=== PATIENT | female | born 1935 | race Caucasian/White ===

== ENCOUNTER 2017-07-03 17:28 | Emergency (ER) | payer MEDICARE, OTHER ==
[2017-07-03 18:29] VITALS: BP 160/67; PULSE 80; O2SAT 96
[2017-07-03] MEDS ORDERED: TYLENOL 325 MG PO ONE (18:35)
[2017-07-03] MEDS ORDERED: TYLENOL 325 MG ONE (18:37)
[2017-07-03] MEDS ORDERED: BACIGUENT PACKET TP ONE (20:04)
--- NOTE | 2017-07-03 20:04 | ERPHSYRPT ---
- History of Present Illness Time Seen by Provider: 07/03/17 18:31 Source: patient, family () Patient Subjective Stated Complaint: pT states "I was walking up an incline when I lost my balance and fell over backwards and hit my head on some asphalt and it was bleeding." Triage Nursing Assessment: PT alert and oriented X 3 skin pwd. pt ambulates without difficulty, able to speak in full sentences. pt has 2 cochlear implants and a small laceration to occiput. Physician History: CC: fell Hx: [facility]. She hit the back of her head. No LOC. No neck or back pain. No N/T/W. She has hx of cochlear implant. Last tetanus vaccine 1 year ago. No other injuries. No blood thinners. Occurred: just prior to arrival Allergies/Adverse Reactions: Penicillins Allergy (Verified 07/03/17 18:29) face numb acetaminophen [From Darvocet-N] Adverse Reaction (Verified 07/03/17 18:30) upset stomach propoxyphene [From Darvocet-N] Adverse Reaction (Verified 07/03/17 18:30) upset stomach Home Medications: Unobtainable [Unobtainable] 07/03/17 [History] Hx Tetanus, Diphtheria Vaccination/Date Given: Yes Hx Influenza Vaccination/Date Given: Yes Hx Pneumococcal Vaccination/Date Given: Yes Immunizations Up to Date: Yes - Review of Systems Constitutional: No Symptoms Eyes: No Vision Changes Respiratory: No Cough, No Dyspnea, No Other Cardiac: No Syncope Abdominal/Gastrointestinal: No Abdominal Pain, No Nausea, No Vomiting Musculoskeletal: Fall, No Back Pain, No Neck Pain, No Joint Pain Neurological: Headache, No Focal Weakness, No Parasthesia All Other Systems: Reviewed and Negative - Past Medical History Pertinent Past Medical History: Yes Neurological History: No Pertinent History ENT History: Cataracts, Glaucoma, Other Cardiac History: No Pertinent History Respiratory History: COPD Endocrine Medical History: Hypothyroidism Musculoskeletal History: Arthritis GI Medical History: GERD History: No Pertinent History Psycho-Social History: Anxiety, Depression Female Reproductive Disorders: No Pertinent History Other Medical History: polio - Past Surgical History Past Surgical History: Yes Neuro Surgical History: Other Cardiac: No Pertinent History Respiratory: No Pertinent History Gastrointestinal: No Pertinent History Genitourinary: No Pertinent History Musculoskeletal: Other Female Surgical History: Hysterectomy Other Surgical History: bilat cochlear implants. left ankle - Social History Smoking Status: Former smoker Exposure to second hand smoke: No Drug Use: none Patient Lives Alone: No () - Nursing Vital Signs Nursing Vital Signs: Initial Vital Signs Temperature 98.2 F 07/03/17 18:19 Pulse Rate 80 07/03/17 18:19 Respiratory Rate 18 07/03/17 18:19 Blood Pressure 160/67 07/03/17 18:19 O2 Sat by Pulse Oximetry 96 07/03/17 18:19 Pain Scale Pain Intensity 5 - [place] Coma Score Best Eye Response ([place]): (4) open spontaneously Best Verbal Response (Remy): (5) oriented Best Motor Response ([place]): (6) obeys commands [place] Total: 15 - Physical Exam General Appearance: alert Head Injury: ecchymosis, swelling (posterior scalp with hematoma), tenderness, No lacerations Eye Exam: PERRL/EOMI ENT Exam: airway nml Neck Exam: supple, No mid-line tenderness Respiratory/Chest Exam: normal breath sounds, No chest tenderness Cardiovascular Exam: normal heart sounds, regular rate/rhythm Gastrointestinal Exam: soft, No tenderness, No distention Back Exam: normal inspection, No vertebral tenderness Extremity Exam: normal inspection, normal range of motion, pelvis stable, No tenderness Neurologic Exam: alert, oriented x 3, cooperative, sensation nml, No motor deficits Skin Exam: warm, dry, No laceration SpO2: 96 Oxygen Delivery: Room Air Comment: there is abrasion on posterior scalp without laceration in need or repair. Will cleanse, dress. - Course Nursing assessment & vital signs reviewed: Yes Ordered Tests: Active Orders 24 hr Category Date Time Status Prepare for Sutures STAT Care 07/03/17 18:35 Active Sutures STAT Care 07/03/17 18:36 Active Wound Care STAT Care 07/03/17 18:35 Active HEAD WITHOUT CONTRAST [CT] Stat Exams 07/03/17 18:35 Taken Medication Summary Discontinued Medications Generic Name Dose Route Start Last Admin Trade Name Freq PRN Reason Stop Dose Admin Acetaminophen 650 mg 07/03/17 18:35 07/03/17 18:38 Tylenol 325 Mg PO 07/03/17 18:36 650 mg STAT ONE Administration Acetaminophen Confirm 07/03/17 18:37 Tylenol 325 Mg Administered 07/03/17 18:38 Dose 650 mg .ROUTE .STK-MED ONE - Progress Progress Note: 07/03/17 20:02 CT brain: eleazar 7:15 PM 07/03/2017: No comps. Significant B/L artifact from cochlear implants limits study. R posterior scalp hematoma. No underlying fx or gross acute intracranial bleed. Counseled pt/family regarding: diagnosis, need for follow-up, rad results - Departure Time of Disposition: 20:03 Departure Disposition: Home Clinical Impression: Fall (on)(from) incline, initial encounter Scalp hematoma Qualifiers: Encounter type: initial encounter Qualified Code(s): S00.03XA - Contusion of scalp, initial encounter Condition: Stable Critical Care Time: No Referrals: DMITRIY FRYE [ACTIVE STAFF] - Instructions: Prevent Falls Additional Instructions: HEAD INJURY 1. A responsible person should observe the patient at home for 24 hours. 2. If any of the following signs or symptoms are observed or occur, call your family physician or return to the emergency department: A. Behavior change B. Persistent vomiting C. Unequal pupils D. Increasing drowsiness E. Difficulty in arousing the patient F. Severe headache G. Lump on head increasing in size Stay with family. Return for problems or concerns. Tylenol as directed for discomfort.
--- NOTE | 2017-07-04 08:51 | XRAY ---
Indication: Posterior head injury following fall. Multiple contiguous axial images obtained through the head without contrast. Comparison: None There are bilateral cochlear implants producing extreme beam artifact limiting the study. Small right posterior scalp hematoma near the vertex. No underlying fracture, gross acute intracranial hemorrhage, mass effect, or hydrocephalus. Visualized paranasal sinuses are clear. Impression: Limited exam. Right posterior scalp hematoma. No underlying fracture or gross intracranial abnormalities. CT DI 61.28
== END 2017-07-03 20:15 | disposition home or self-care (01) ==
LOC: ED 17:28
DX: S00.03XA Contusion of scalp, initial encounter (principal); W18.30XA Fall on same level, unspecified, initial encounter; J44.9 Chronic obstructive pulmonary disease, unspecified; E03.9 Hypothyroidism, unspecified; S00.01XA Abrasion of scalp, initial encounter
CPT/HCPCS: 70450; 99281; 99284; A9270-GY

== ENCOUNTER 2017-08-07 13:40 | Emergency (ER) | payer MEDICARE, OTHER ==
--- NOTE | 2017-08-07 14:28 | ERPHSYRPT ---
- History of Present Illness Time Seen by Provider: 08/07/17 14:22 Source: patient, family Exam Limitations: no limitations Patient Subjective Stated Complaint: PT LOST BALANCE AND FELL AGAINIST THE OVEN DOOR,AND SHATTERD THE GLASS,PT HAS LACERATION TO BACK OF HEAD AND ABRASION TO LEFT ARM, NO LOC Triage Nursing Assessment: PT ALERT, WALKED IN, RESP EASY, SKIN W/D, HAS LACERATION 1CM TO BACK OF HEAD NO ACTIVE BLEEDING Physician History: The patient is an 81-year-old female who complains of falling backwards and hitting the back of her head on an oven door, causing a laceration to the back of her head. She denies loss of consciousness. Her past medical history is significant for hypothyroidism and depression. Occurred: just prior to arrival Reason for Fall: lost balance, fell from standing pos Injuries/Pain Location: head Loss of Consciousness: no loss of consciousness Quality: aching Severity of Pain-Max: mild Severity of Pain-Current: mild Modifying Factors: Improves With: nothing Associated Symptoms (Fall): other (scalp laceration) Allergies/Adverse Reactions: Penicillins Allergy (Verified 08/07/17 13:46) face numb acetaminophen [From Darvocet-N] Adverse Reaction (Verified 08/07/17 13:46) upset stomach propoxyphene [From Darvocet-N] Adverse Reaction (Verified 08/07/17 13:46) upset stomach Home Medications: Estrogens,Conjugated [Premarin Vaginal Cream] 1 gm DAILY 08/07/17 [History] Fluoxetine HCl 60 mg DAILY 08/07/17 [History] Levothyroxine Sodium [Synthroid] 25 mcg DAILY 08/07/17 [History] Modafinil 200 mg DAILY 08/07/17 [History] Hx Tetanus, Diphtheria Vaccination/Date Given: Yes Hx Influenza Vaccination/Date Given: Yes Hx Pneumococcal Vaccination/Date Given: Yes Immunizations Up to Date: Yes - Review of Systems Constitutional: No Fever, No Chills Eyes: No Symptoms Ears, Nose, & Throat: No Symptoms Respiratory: No Cough, No Dyspnea Cardiac: No Chest Pain, No Edema, No Syncope Abdominal/Gastrointestinal: No Abdominal Pain, No Nausea, No Vomiting, No Diarrhea Genitourinary Symptoms: No Dysuria Musculoskeletal: Fall, Injury Skin: Other (lac), No Rash Neurological: No Dizziness, No Focal Weakness, No Sensory Changes Psychological: No Symptoms Endocrine: No Symptoms Hematologic/Lymphatic: No Symptoms Immunological/Allergic: No Symptoms All Other Systems: Reviewed and Negative - Past Medical History Pertinent Past Medical History: Yes Neurological History: No Pertinent History ENT History: Cataracts, Glaucoma, Other Cardiac History: No Pertinent History Respiratory History: COPD Endocrine Medical History: Hypothyroidism Musculoskeletal History: Arthritis GI Medical History: GERD History: No Pertinent History Psycho-Social History: Anxiety, Depression Female Reproductive Disorders: No Pertinent History Other Medical History: polio, HEARING LOSS - Past Surgical History Past Surgical History: Yes Neuro Surgical History: Other Cardiac: No Pertinent History Respiratory: No Pertinent History Gastrointestinal: No Pertinent History Genitourinary: No Pertinent History Musculoskeletal: Other Female Surgical History: Hysterectomy Other Surgical History: bilat cochlear implants. left ankle - Social History Smoking Status: Former smoker Exposure to second hand smoke: No Drug Use: none Patient Lives Alone: No - Female History Hx Last Menstrual Period: POST - Nursing Vital Signs Nursing Vital Signs: Initial Vital Signs Temperature 97.2 F 08/07/17 13:48 Pulse Rate 93 H 08/07/17 13:48 Respiratory Rate 16 08/07/17 13:48 Blood Pressure 142/77 08/07/17 13:48 O2 Sat by Pulse Oximetry 95 08/07/17 13:48 Pain Scale Pain Intensity 2 - [place] Coma Score Best Eye Response ([place]): (4) open spontaneously Best Verbal Response (Remy): (5) oriented Best Motor Response (Remy): (6) obeys commands Remy Total: 15 - Physical Exam General Appearance: no apparent distress, alert Head Injury: lacerations (1 cm laceration to occiput) Eye Exam: PERRL/EOMI ENT Exam: airway nml Neck Exam: normal inspection, No tenderness Respiratory/Chest Exam: normal breath sounds, No chest tenderness, No respiratory distress Cardiovascular Exam: normal heart sounds, regular rate/rhythm Gastrointestinal Exam: soft, No tenderness, No distention, No guarding, No ecchymosis Rectal Exam: not done Back Exam: normal inspection, No vertebral tenderness Extremity Exam: normal inspection, normal range of motion, pelvis stable, No deformities Neurologic Exam: alert, oriented x 3, cooperative, sensation nml, No motor deficits Skin Exam: laceration (1 cm laceration to occiput) SpO2: 95 Oxygen Delivery: Room Air Procedures - Laceration/Wound Repair Occipital Wound Location: head Wound Length (cm): 1 Wound's Depth, Shape: superficial, linear Wound Explored: clean Irrigated: Yes Hibiclens Prep: Yes Wound Repaired With: Germain Number of Sutures: 2 Layer Closure?: No Sterile Dressing Applied?: No Splint Applied?: No Sling Applied?: No - CT Exams Cervical Spine CT Interpretation: Negative, Tele-radiologist Report, No Fracture (Per Dr Poe) Head CT Interpretation: Negative (Stable nonacute Head CT per Dr Poe), Tele- radiologist Report Ordered Tests: Active Orders 24 hr Category Date Time Status CERVICAL SPINE WO CONTRAST [CT] Stat Exams 08/07/17 14:27 Completed HEAD WITHOUT CONTRAST [CT] Stat Exams 08/07/17 14:27 Completed - Progress Progress: improved Counseled pt/family regarding: diagnosis, need for follow-up, rad results - Departure Time of Disposition: 16:15 Departure Disposition: Home Clinical Impression: Scalp contusion, Occipital scalp laceration Condition: Stable Critical Care Time: No Referrals: DHIRAJ BALLESTEROS DO [Primary Care Provider] - Additional Instructions: You had a scalp contusion and laceration. The laceration was repaired with 2 germain. Follow-up in 9-10 days with your local doctor for staple removal. Take Tylenol as needed for pain.
--- NOTE | 2017-08-07 15:24 | XRAY ---
Indication: Head injury following fall. Multiple contiguous axial images obtained through the head without contrast. Comparison: July 03, 2017. Study again limited due to bilateral cochlear implants producing extreme beam artifact. Again no gross acute intracranial hemorrhage, mass effect, or hydrocephalus. Fourth ventricle is midline without hydrocephalus. Bony calvarium intact. Visualized paranasal sinuses are clear. Impression: Stable grossly nonacute limited CT head without contrast exam. CT DI 51.17
--- NOTE | 2017-08-07 15:25 | XRAY ---
Indication: Pain following fall. Multiple contiguous axial images obtained through the cervical spine. Sagittal and coronal reformatted images obtained. Comparison: None There is age-appropriate osteopenia. Axial images negative for acute fracture, suspicious bony lesions, or spinal canal stenosis. Mild degenerative endplate spurring seen at the C4-C6 levels. Also multilevel bilateral degenerative facet arthropathy and odontoid process subcortical cysts. Sagittal and coronal reformatted images demonstrates cervical lordotic straightening with 4 mm anterolisthesis of C3 on C4, 2 mm retrolisthesis of C5 on C6, and 2 mm anterolisthesis of C7 on T1. Same levels demonstrates disc space narrowing/loss. C4-C5 segments appear fused. No acute compression fracture or jumped facets. Normal-appearing craniocervical junction. Visualized noncontrasted soft tissues demonstrates moderate carotid calcifications bilaterally, biapical pulmonary fibrosis/scarring, and partially visualized left sided cochlear implant. Impression: 1. Negative for acute fracture or spinal canal stenosis. 2. Multilevel moderate/advanced degenerative changes. 3. Grade 1 C3 and C7 anterolisthesis. Grade 1 C5 retrolisthesis. 4. Cervical lordotic reversal. CT DI 79.70
[2017-08-07 16:39] VITALS: BP 145/65; PULSE 78; O2SAT 96
== END 2017-08-07 16:40 | disposition home or self-care (01) ==
LOC: ED 13:40
PROC: 0HQ0XZZ Repair Scalp Skin, External Approach (ICD-10-PCS; principal; 2017-08-07)
DX: S00.03XA Contusion of scalp, initial encounter (principal); S01.01XA Laceration without foreign body of scalp, initial encounter; W01.198A Fall on same level from slipping, tripping and stumbling with subsequent striking against other object, initial encounter
CPT/HCPCS: 12001; 70450; 72125; 99282; 99284

== ENCOUNTER 2021-06-04 20:02 | Emergency (ER) | payer MEDICARE, OTHER ==
[2021-06-04 22:18] LABS: Absolute Neutrophil Ct (ANC) 5.01 (1.4-6.9); BASOPHIL % 0.6 % (0.0-0.4); Basophil (Absolute #) 0.05 (0-0.4); Eosinophil % 3.9 % (0.00-5.0); Eosinophil (Absolute #) 0.34 (0-0.5); Hematocrit 32.7 % (35-47); Hemoglobin 10.4 gm/dl (12.0-16.0); Lymphocyte (Absolute #) 2.62 (1.0-4.6); Lymphocytes % 30.3 % (24.0-44.0); Mean Cell Volume 99.7 fl (78-100); Mean Corpuscular Hemoglobin 31.7 pg (26-32); Mean Corpuscular Hgb Concent. 31.8 g/dl (32-36); Mean Platelet Volume 9.1 fl (7.5-11.0); Monocyte (Absolute #) 0.62 (0.0-1.3); Monocytes % 7.2 % (0.0-12.0); Platelet Count 259 K/mm3 (150-450); Red Blood Count 3.28 M/mm3 (4.1-5.4); Red Cell Distribution Width 12.4 % (11.5-14.0); White Blood Count 8.6 K/mm3 (4.0-10.5)
[2021-06-04 22:22] LABS: ALBUMIN 4.5 g/dL (3.5-5.0); ALKALINE PHOSPHATASE 58 U/L (38-126); ANION GAP 14.7 MEQ/L (5-15); BLOOD UREA NITROGEN 21 mg/dL (7-17); CHLORIDE 99 mmol/L (98-107); Carbon Dioxide 26 mmol/L (22-30); Creatinine 1 0.93 mg/dL (0.52-1.04); EST GLOMERULAR FILTRATION RATE > 60.0 ML/MIN; Glucose 108 mg/dL (74-106); Potassium 4.6 mmol/L (3.5-5.1); SGOT/AST 30 U/L (14-36); SGPT/ALT 15 U/L (0-35); SODIUM 135 mmol/L (137-145); Total Protein 7.2 g/dL (6.3-8.2)
[2021-06-04 23:17] VITALS: BP 123/94; O2SAT 98
[2021-06-04] MEDS ORDERED: MORPHINE SULFATE 2 MG INJ ONE (23:29)
--- NOTE | 2021-06-04 23:34 | ERPHSYRPT ---
- History of Present Illness Time Seen by Provider: 06/04/21 20:10 Source: patient Patient Subjective Stated Complaint: "I'm itching and coughing a lot." Triage Nursing Assessment: The patient reported concern for a cough and increased sputum production. She reported having the cough over the past 7 weeks but only recently had an increase in her sputum production. Denied any chest pain, shortness of breath, headache, dizziness, or swelling in her extremities. She reported that she has not taken her home medications in the past two days. Pupils 3mm brisk direct and consensual reaction to light. oral mucosa pink/moist without edema/exudate. Neck supple without lymphadenopathy. No noted stridor. Symmetrical chest expansion. heart tones S1/S2 regular rate and rhythm without extra sounds. Lungs vesicular with adequate airflow throughout all lung gutierrez. peripheral pulses +3 bilateral. No noted urticaria or hives. Gait steady with the use of a rollator. She does have minor red bumps to the chest. Physician History: Patient is an 85-year-old female presents to our ED with concerns for possible anaphylaxis. Patient states she has a history of pruritus and cough. Patient states the pruritus became worse today. Patient states her chronic cough developed a production of sputum. Patient became concerned for anaphylaxis. Patient states she has had a cough for approximately 7 weeks. She has no other symptomology. No chest pain or shortness of breath. No nausea vomiting or diaphoresis. No headache. No syncope no seizure no dizziness. Patient advises that she has not taken her medications in the past 2 days. It is unclear why. Patient otherwise voices no complaints. Patient sons at bedside. Patient is normally functional and ambulates with a rolling walker. Patient advised that she has right-sided chronic shoulder pain. She is currently on Dilantin for this shoulder pain. Timing/Duration: today Severity: mild Modifying Factors: Improves With: nothing Associated Symptoms: denies symptoms Allergies/Adverse Reactions: Penicillins Allergy (Severe, Verified 06/04/21 20:49) face numb acetaminophen [From Darvocet-N] Adverse Reaction (Mild, Verified 06/04/21 20:49) upset stomach amoxicillin Adverse Reaction (Mild, Verified 06/04/21 20:49) Rash cyclobenzaprine [From Flexeril] Adverse Reaction (Mild, Verified 06/04/21 20:49) Rash ibuprofen Adverse Reaction (Mild, Verified 06/04/21 20:49) Rash ketoprofen [From Orudis] Adverse Reaction (Mild, Verified 06/04/21 20:49) Stomach Cramps methocarbamol [From Robaxin] Adverse Reaction (Mild, Verified 06/04/21 20:49) Stomach Cramps propoxyphene [From Darvocet-N] Adverse Reaction (Mild, Verified 06/04/21 20:49) upset stomach tetracycline [From Achromycin] Adverse Reaction (Mild, Verified 06/04/21 20:49) Rash Home Medications: Albuterol Sulfate [Proair Hfa] 8.5 gm IH UD 09/13/20 [History] Duloxetine HCl 30 mg [Cymbalta 30 MG Capsule] 30 mg PO HS 09/13/20 [History] Hydrocortisone 2.5% 30 gm [Anusol-Hc 2.5% Cream 30 gm] 30 gm TP UD 09/13/20 [History] Latanoprost/Pf [Latanoprost 0.005% Eye Drop] 7.5 ml OP HS 09/13/20 [History] Lisinopril 10 mg [Zestril 10 MG] 10 mg PO DAILY 09/13/20 [History] Multivit-Min/Iron/Folic/Lutein [Centrum Silver Women Tablet] 1 each PO DAILY 09/13/20 [History] Omeprazole Magnesium [Prilosec Otc] 40 mg PO BREAKFAST 09/13/20 [History] Rosuvastatin Calcium 40 mg PO DAILY 09/13/20 [History] Turmeric Root Extract [Turmeric Curcumin] 500 mg PO DAILY 09/13/20 [History] Zinc 50 mg PO DAILY 09/13/20 [History] hydroCHLOROthiazide [Hydrochlorothiazide] 12.5 mg PO BREAKFAST 09/13/20 [History] modafiniL [Modafinil] 200 mg PO BREAKFAST 09/13/20 [History] Aspirin 81 mg PO DAILY 03/21/21 [History] Cristóbal/D3/Mag11/Zinc/Conche Operator/Reinaldo/Bor [Caltrate 600+D Plus Tablet] 1 each PO BID [History] Carboxymethylcellulose Sodium [Thera Tears] 15 ml OP BID 03/21/21 [History] Guaifenesin Dextromethorphan [MUCINEX Dm 600/30MG] 600 tablet PO UD 03/21/21 [History] Ketoconazole/Niacinamide [Ketoconazole 2%-Niacin 4% Crm] 30 gm TP UD 03/21/21 [History] Magnesium 400 mg PO DAILY 03/21/21 [History] Metoprolol Succinate 25 mg PO DAILY 03/21/21 [History] [place]-3 Fatty Acids/Fish Oil [Fish Oil 1,000 mg Capsule] 1 each PO BID 03/21/21 [History] metroNIDAZOLE [Metronidazole] 45 gm TP UD 03/21/21 [History] Hx Tetanus, Diphtheria Vaccination/Date Given: Yes Hx Influenza Vaccination/Date Given: Yes Hx Pneumococcal Vaccination/Date Given: Yes Travel Risk - International Travel Have you traveled outside of the country in past 3 weeks: No - Coronavirus Screening Are you exhibiting any of the following symptoms?: No Close contact with a COVID-19 positive Pt in past 14-21 Days: No - Vaccine Status Have you recieved a Covid-19 vaccination: Yes Grain [employer]: [employer] - Vaccination Dates Date of 2cond Vaccination (if applicable): unknown - Review of Systems Constitutional: No Symptoms, No Fever, No Chills Eyes: No Symptoms Ears, Nose, & Throat: No Symptoms Respiratory: No Symptoms, No Cough, No Dyspnea Cardiac: No Symptoms, No Chest Pain, No Edema, No Syncope Abdominal/Gastrointestinal: No Symptoms, No Abdominal Pain, No Nausea, No Vomiting, No Diarrhea Genitourinary Symptoms: No Symptoms, No Dysuria Musculoskeletal: No Symptoms, No Back Pain, No Neck Pain Skin: No Symptoms, No Rash Neurological: No Symptoms, No Dizziness, No Focal Weakness, No Sensory Changes Psychological: No Symptoms Endocrine: No Symptoms Hematologic/Lymphatic: No Symptoms Immunological/Allergic: No Symptoms All Other Systems: Reviewed and Negative - Past Medical History Pertinent Past Medical History: Yes Neurological History: No Pertinent History ENT History: Cataracts, Glaucoma, Other Cardiac History: Hypertension Respiratory History: Asthma, Bronchitis, COPD Endocrine Medical History: Hypothyroidism Musculoskeletal History: Arthritis GI Medical History: GERD History: No Pertinent History Psycho-Social History: Anxiety, Depression Female Reproductive Disorders: No Pertinent History Other Medical History: polio, HEARING LOSS - Past Surgical History Past Surgical History: Yes Neuro Surgical History: Other Cardiac: No Pertinent History Respiratory: No Pertinent History Gastrointestinal: No Pertinent History Genitourinary: No Pertinent History Musculoskeletal: Other Female Surgical History: Hysterectomy Other Surgical History: bilat cochlear implants. left ankle, left hip fx with hdwe placed May 2020 - Social History Smoking Status: Former smoker Exposure to second hand smoke: No Drug Use: none Patient Lives Alone: Yes - Female History Hx Now: No - Nursing Vital Signs Nursing Vital Signs: Initial Vital Signs Temperature 98.6 F 06/04/21 20:03 Pulse Rate 100 H 06/04/21 20:03 Respiratory Rate 18 06/04/21 20:03 Blood Pressure 198/111 06/04/21 20:03 O2 Sat by Pulse Oximetry 97 06/04/21 20:03 Pain Scale Pain Intensity 6 - Physical Exam General Appearance: no apparent distress, alert Eye Exam: PERRL/EOMI, eyes nml inspection Ears, Nose, Throat Exam: normal ENT inspection, TMs normal, pharynx normal, moist mucous membranes Neck Exam: normal inspection, non-tender, supple, full range of motion Respiratory Exam: normal breath sounds, lungs clear, No respiratory distress Cardiovascular Exam: regular rate/rhythm, normal heart sounds, normal peripheral pulses Gastrointestinal/Abdomen Exam: soft, normal bowel sounds, No tenderness, No mass Back Exam: normal inspection, normal range of motion, No CVA tenderness, No vertebral tenderness Extremity Exam: normal inspection, normal range of motion, pelvis stable, other (Chronic right shoulder pain. Extremities neurovascular intact distally. Compartments are soft. Cap refill less than 2 seconds. Patient currently on Neurontin for this chronic right shoulder pain.) Neurologic Exam: alert, oriented x 3, cooperative, normal mood/affect, sensation nml, No motor deficits Skin Exam: normal color, warm, dry, No rash Lymphatic Exam: No adenopathy SpO2 Interpretation: normal SpO2: 98 O2 Delivery: Room Air - Course Nursing assessment & vital signs reviewed: Yes EKG Interpreted by Me: RATE - Radiology Exams Chest X-ray Interpretation: Interpreted by me (Lung granuloma. Normal cardiac silhouette. Right shoulder appears to have a slight shoulder separation as comp ared to the left. Nonacute chest.) Ordered Tests: Active Orders 24 hr Category Date Time Status CHEST 1 VIEW (PORTABLE) Stat Exams 06/04/21 21:42 Taken CBC W DIFF Stat Lab 06/04/21 21:59 Completed CMP Stat Lab 06/04/21 21:59 Completed TROPONIN Q3H Lab 06/04/21 21:59 Completed TROPONIN Q3H Lab 06/05/21 00:01 Completed TROPONIN Q3H Lab 06/05/21 03:45 Ordered TROPONIN Q3H Lab 06/05/21 06:45 Ordered TROPONIN Q3H Lab 06/05/21 09:45 Ordered Urine Triage Profile Stat Lab 06/04/21 21:42 Ordered Medication Summary Discontinued Medications Generic Name Dose Route Start Last Admin Trade Name Juno PRN Reason Stop Dose Admin Morphine Sulfate 2 mg 06/04/21 23:27 06/04/21 23:44 Morphine Sulfate 2 Mg Inj IV 06/04/21 23:28 Not Given STAT ONE Morphine Sulfate Confirm 06/04/21 23:29 Morphine Sulfate 2 Mg Inj Administered 06/04/21 23:30 Dose 2 mg .ROUTE .STK-MED ONE Morphine Sulfate 2 mg 06/04/21 23:44 06/04/21 23:50 Morphine Sulfate 2 Mg Inj IM 06/04/21 23:45 2 mg STAT ONE Administration Lab/Rad Data: Laboratory Result Diagrams 06/04/21 21:59 06/04/21 21:59 Laboratory Results 06/05/21 06/04/21 06/04/21 Range/Units 00:01 21:59 21:59 WBC (4.0-10.5) K/mm3 RBC (4.1-5.4) M/mm3 Hgb (12.0-16.0) gm/dl Hct (35-47) % MCV (78-100) fl MCH (26-32) pg MCHC (32-36) g/dl RDW (11.5-14.0) % Plt Count (150-450) K/mm3 MPV (7.5-11.0) fl Gran % (36.0-66.0) % Eos # (Auto) (0-0.5) Absolute Lymphs (auto) (1.0-4.6) Absolute Monos (auto) (0.0-1.3) Lymphocytes % (24.0-44.0) % Monocytes % (0.0-12.0) % Eosinophils % (0.00-5.0) % Basophils % (0.0-0.4) % Absolute Granulocytes (1.4-6.9) Basophils # (0-0.4) Sodium 135 L (137-145) mmol/L Potassium 4.6 (3.5-5.1) mmol/L Chloride 99 (98-107) mmol/L Carbon Dioxide 26 (22-30) mmol/L Anion Gap 14.7 (5-15) MEQ/L BUN 21 H (7-17) mg/dL Creatinine 0.93 (0.52-1.04) mg/dL Estimated GFR > 60.0 ML/MIN Glucose 108 H (74-106) mg/dL Calcium 10.0 (8.4-10.2) mg/dL Total Bilirubin 0.10 L (0.2-1.3) mg/dL AST 30 (14-36) U/L ALT 15 (0-35) U/L Alkaline Phosphatase 58 (38-126) U/L Troponin I < 0.012 < 0.012 (0.000-0.034) ng/mL Serum Total Protein 7.2 (6.3-8.2) g/dL Albumin 4.5 (3.5-5.0) g/dL 06/04/21 Range/Units 21:59 WBC 8.6 (4.0-10.5) K/mm3 RBC 3.28 L (4.1-5.4) M/mm3 Hgb 10.4 L (12.0-16.0) gm/dl Hct 32.7 L (35-47) % MCV 99.7 (78-100) fl MCH 31.7 (26-32) pg MCHC 31.8 L (32-36) g/dl RDW 12.4 (11.5-14.0) % Plt Count 259 (150-450) K/mm3 MPV 9.1 (7.5-11.0) fl Gran % 58.0 (36.0-66.0) % Eos # (Auto) 0.34 (0-0.5) Absolute Lymphs (auto) 2.62 (1.0-4.6) Absolute Monos (auto) 0.62 (0.0-1.3) Lymphocytes % 30.3 (24.0-44.0) % Monocytes % 7.2 (0.0-12.0) % Eosinophils % 3.9 (0.00-5.0) % Basophils % 0.6 (0.0-0.4) % Absolute Granulocytes 5.01 (1.4-6.9) Basophils # 0.05 (0-0.4) Sodium (137-145) mmol/L Potassium (3.5-5.1) mmol/L Chloride (98-107) mmol/L Carbon Dioxide (22-30) mmol/L Anion Gap (5-15) MEQ/L BUN (7-17) mg/dL Creatinine (0.52-1.04) mg/dL Estimated GFR ML/MIN Glucose (74-106) mg/dL Calcium (8.4-10.2) mg/dL Total Bilirubin (0.2-1.3) mg/dL AST (14-36) U/L ALT (0-35) U/L Alkaline Phosphatase (38-126) U/L Troponin I (0.000-0.034) ng/mL Serum Total Protein (6.3-8.2) g/dL Albumin (3.5-5.0) g/dL - Progress Progress: improved Progress Note: Patient reassessed. She is currently asymptomatic. Patient right shoulder pain significantly improved after sling applied. Troponin negative x2. No indication for further work-up at this time. Will discharge home. Son at bedside. They agree to follow-up with Dr. Parra tomorrow for reevaluation. They voiced no other complaints at this time. Will discharge home. 06/05/21 00:38 06/05/21 00:40 Portions of this note were created with voice recognition technology. There may be grammatical, spelling, punctuation or sound alike errors Counseled pt/family regarding: lab results, diagnosis, need for follow-up, rad results - Departure Departure Disposition: Home Clinical Impression: Chronic shoulder pain, Shoulder separation, Normocytic anemia Condition: Stable Critical Care Time: No Referrals: MARGARET LAGUNA DO [Primary Care Provider] - Additional Instructions: Discharge/Care Plan CLARE HEBERT was seen on 06/05/21 in the Emergency Room. The patient was counseled regarding Diagnosis,Lab results, Imaging studies, need for follow up and when to return to the Emergency Room. Prescriptions given: Discharge Note I have spoken with the patient and/or caregivers. I have explained the patient's condition, diagnosis and treatment plan based on the information available to me at this time. I have answered the patient's and/or caregiver's questions and addressed any concerns. The patient and/or caregivers have as good understanding of the patient's diagnosis, condition and treatment plan as can be expected at this point. The vital signs have been stable. The patient's condition is stable and appropriate for discharge from the emergency department. The patient will pursue further outpatient evaluation with the primary care physician or other designated or consulting physician as outlined in the disch arge instructions. The patient and/or caregivers are agreeable to this plan of care and follow-up instructions have been explained in detail. The patient and/or caregivers have received these instruction. The patient/and or caregivers are aware that any significant change in condition or worsening of symptoms should prompt an immediate return to this or the closest emergency department or call 911.
[2021-06-04] MEDS: MORPHINE SULFATE 2 MG INJ IV ONE (23:44)
[2021-06-04] MEDS: MORPHINE SULFATE 2 MG INJ IM ONE (23:50)
[2021-06-05 01:04] VITALS: PULSE 88
--- NOTE | 2021-06-05 08:49 | XRAY ---
Indication: Right shoulder pain. Cough. Comparison: January 29, 2021. Portable chest remains clear again with a few incidental tiny calcified granulomas. Heart and mediastinal structures within normal limits. Bony thorax intact again with mild osteopenia, degenerative changes, and scoliosis. Impression: Continued nonacute chest with chronic features.
== END 2021-06-05 00:55 | disposition home or self-care (01) ==
LOC: ED 20:02
DX: D64.9 Anemia, unspecified (principal); R05 Cough; M25.511 Pain in right shoulder; Z79.899 Other long term (current) drug therapy; S43.004A Unspecified dislocation of right shoulder joint, initial encounter
CPT/HCPCS: 36415; 71045; 80053; 84484; 85025; 96372; 99284; J2270